=== PATIENT | female | born 1960 | race Caucasian/White ===

== ENCOUNTER → 2019-11-26 15:46 | Outpatient (CLI) | payer BC, SELFPAY ==
--- NOTE | ~2019-11-26 | MM_ITS ---
EXAMINATION: MM screening lauri BI w jaja HISTORY: Screening mammogram TECHNIQUE: Craniocaudal and mediolateral oblique 3-D tomosynthesis images were obtained and synthetic 2-D images were generated. CAD analysis was submitted and interpreted. COMPARISON: 07/17/2017, 05/17/2016, 01/06/2015 bilateral digital screening mammogram examinations BREAST PARENCHYMAL COMPOSITION: The breasts are extremely dense, which lowers the sensitivity of mamm ography. FINDINGS: There is no evidence of suspicious mass, calcification, or architectural distortion to sugg est malignancy in either breast. There has been no suspicious interval change. IMPRESSION: 1. No mammographic evidence of malignancy. 2. Recommend routine screening mammography in one year. BI-RADS Category 1: Negative Reviewed, dictated and finalized at location A.
== END ==
PROVIDERS: PCP Family Medicine Adolescent Medicine; Visit Provider Family Medicine Adolescent Medicine
DX: Z12.31 Encounter for screening mammogram for malignant neoplasm of breast (principal)
CPT/HCPCS: 77063; 77067

== ENCOUNTER → 2022-11-28 12:18 | Outpatient (CLI) | payer OTHER, SELFPAY ==
--- NOTE | ~2022-11-28 | MM_ITS ---
EXAMINATION: MM screening lauri BI w jaja HISTORY: Screening mammogram TECHNIQUE: Craniocaudal and mediolateral oblique 3-D tomosynthesis images were obtained and synthetic 2-D images were generated. CAD analysis was submitted and interpreted. COMPARISON: No prior mammogram is available for comparison at this institution. BREAST PARENCHYMAL COMPOSITION: The breasts are heterogeneously dense, which may obscure small masses . FINDINGS: There is no evidence of suspicious mass, calcification, or architectural distortion to sugg est malignancy in either breast. There has been no suspicious interval change. IMPRESSION: 1. No mammographic evidence of malignancy. 2. Recommend routine screening mammography in one year. BI-RADS Category 1: Negative Reviewed, dictated and finalized at location A.
--- NOTE | ~2022-11-28 | DEXA_ITS ---
Bone Density Report Name: JAYANT NEW Age: 62 Sex: Female Ethnicity: White Date of : 1960 Indication: osteopenia; height loss; hysterectomy; postmenopausal Referring Provider: JALEEL MCCLURE Study: Bone densitometry was performed. Exam Date: November 28, 2022 Accession number: [id number] Bone Density: Region BMD T-score Z-score Classification AP Spine (L1-L4) 0.765 -2.6 -1.1 Osteoporosis Femoral Neck (Left) 0.651 -1.8 -0.5 Osteopenia Total Hip (Left) 0.749 -1.6 -0.6 Osteopenia Femoral Neck (Right) 0.650 -1.8 -0.5 Osteopenia Total Hip (Right) 0.739 -1.7 -0.7 Osteopenia Total Hip Mean 0.744 -1.7 -0.7 Osteopenia World Health Organization criteria for BMD impression classify patients as: Normal (T-score at or above -1.0), Osteopenia (T-score between -1.0 and -2.5), or Osteoporosis (T-score at or below -2.5). 10-year Fracture Risk: FRAX not reported because: Some T-score for Spine Total or Hip Total or Femoral Neck at or below -2.5 Previous Exams: Region Exam Age BMD T-score BMD Change BMD Change Date g/cm2 vs Baseline vs Previous AP Spine(L1-L4) 11/28/2022 62 0.765 -2.6 -0.080* -0.080* 02/20/2008 47 0.845 -1.8 Total Hip(Left) 11/28/2022 62 0.749 -1.6 -0.155* -0.155* 02/20/2008 47 0.905 -0.3 Total Hip(Right) 11/28/2022 62 0.739 -1.7 -0.180* -0.180* 02/20/2008 47 0.919 -0.2 *Denotes significance at 95% confidence level, LSC for AP Spine = 0.022 g/cm2, LSC for Total Hip = 0.027 g/cm2 Clinical Information Provided by Patient: Smokes Has the following medical conditions: Hysterectomy Patient maximum height was 61.5 Menopause Age: 37 Drinks caffeinated beverages Onset of menses at age 14 Number of children 1 Impression: The patient has osteoporosis, based on the Total Spine T-score. The patient has risk factors, including: smoking. The BMD for the AP Spine(L1-L4) decreased, changing by -0.080 since the last DXA exam. The BMD for the Total Hip(Left) decreased, changing by -0.155 since the last DXA exam. The BMD for the Total Hip(Right) decreased, changing by -0.180 since the last DXA exam. Discussion: INCREASED RISK OF FRACTURE. BONE DENSITY IS UNDESIRABLY LOW AT ONE OR MORE SKELETAL SITES, CONSISTENT WITH POSTMENOPAUSAL OSTEOPOROSIS. This patient's lowest T-score meets the World Health Organization's (WHO) criteria for osteoporosis at one or more sites (T-score -2.5 or below).
== END ==
PROVIDERS: PCP Family Medicine Adolescent Medicine; Visit Provider Family Medicine Adolescent Medicine
DX: Z12.31 Encounter for screening mammogram for malignant neoplasm of breast (principal); Z78.0 Asymptomatic menopausal state; M85.89 Other specified disorders of bone density and structure, multiple sites
CPT/HCPCS: 77063; 77067; 77080

== ENCOUNTER 2024-09-05 12:47 | Outpatient (CLI) | payer OTHER, SELFPAY ==
--- NOTE | ~2024-09-05 | MM_ITS ---
EXAMINATION: MM screening lauri BI w jaja HISTORY: Screening TECHNIQUE: Craniocaudal and mediolateral oblique 3-D tomosynthesis images were obtained and synthetic 2-D images were generated. CAD analysis was submitted and interpreted. COMPARISON: Comparison to multiple prior studies sequentially, with oldest reviewed study dated 02/2014. BREAST PARENCHYMAL COMPOSITION: Dense: The breasts are heterogeneously dense, which may obscure small masses FINDINGS: There is no evidence of suspicious mass, calcification, or architectural distortion to sugg est malignancy in either breast. There has been no suspicious interval change. IMPRESSION: 1. No mammographic evidence of malignancy. 2. Recommend routine screening mammography in one year. BI-RADS Category 1: Negative Reviewed, dictated and finalized at location B.
== END 2024-09-05 12:48 | disposition home or self-care (01) ==
LOC: MICIMG 12:48
PROVIDERS: PCP Family Medicine Adolescent Medicine; Visit Provider Family Medicine Adolescent Medicine
DX: Z12.31 Encounter for screening mammogram for malignant neoplasm of breast (principal)
CPT/HCPCS: 77063; 77067